=== PATIENT | female | born 1965 | race Caucasian/White ===

== ENCOUNTER 2022-06-15 06:16 | Inpatient (IN) ==
--- NOTE | 2022-05-14 11:47 | PAT Medication Instructions ---
Medication Instructions Date of Service May 14, 2022 Home Medications Medical Marijuana 1 dose inhalation DIRECTED bupropion HCl 150 mg 24 hr tablet, extended release (Wellbutrin XL) 150 mg PO QAM calcium polycarbophil 625 mg tablet (FiberCon) 1,250 mg PO HS cholecalciferol (vitamin D3) 25 mcg (1,000 unit) capsule (Vitamin D3) 25 mcg PO PM hyoscyamine sulfate 0.125 mg tablet 0.125 mg PO BID PRN melatonin 2.5 mg chewable tablet 2.5 mg PO HS DO NOT take the morning of surgery Medical Marijuana 1 dose inhalation DIRECTED hyoscyamine sulfate 0.125 mg tablet 0.125 mg PO BID PRN Take morning of surgery With a small sip of water, OTHERWISE NOTHING TO EAT OR DRINK AFTER MIDNIGHT: bupropion HCl 150 mg 24 hr tablet, extended release (Wellbutrin XL) 150 mg PO QAM Take evening before surgery Medical Marijuana 1 dose inhalation DIRECTED calcium polycarbophil 625 mg tablet (FiberCon) 1,250 mg PO HS cholecalciferol (vitamin D3) 25 mcg (1,000 unit) capsule (Vitamin D3) 25 mcg PO PM hyoscyamine sulfate 0.125 mg tablet 0.125 mg PO BID PRN (if needed) melatonin 2.5 mg chewable tablet 2.5 mg PO HS Other Notes If you have any questions please call us at [phone] or [phone] or [phone] or [phone]
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
[~2022-06-15 06:16] MED LIST: CeleBREX 200 MG CAP PO SCH; GABAPENTIN 600 MG DOSE PO SCH; LR 15ML/HR IV SCH; ceFAZolin 2000MG 2,000 MG/15 ML SYR IV SCH; dexAMETHasone 4 MG TAB PO SCH
[2022-06-15] MEDS ORDERED: MIDAZOLAM HCL 1 MG/ML 2ML VIAL ONE (06:44)
[2022-06-15] MEDS ORDERED: fentaNYL citrate 100 MCG/2 ML VIAL ONE ×2 (06:44→09:21)
[2022-06-15] MEDS ORDERED: LIDOCAINE 2% MPF LOCAL 5 ML VIAL INFIL ONE (06:53)
[2022-06-15] MEDS ORDERED: ROCURONIUM BROMIDE 10 MG/ML 5 ML VIAL IV ONE ×3 (06:53→08:13)
[2022-06-15] MEDS ORDERED: PROPOFOL IV EMULSION 10 MG/ML 20 ML VIAL IV ONE (06:53)
[2022-06-15] MEDS ORDERED: ONDANSETRON INJ 2 MG/ML 2 ML VIAL ONE (06:53)
[2022-06-15] MEDS ORDERED: DEXAMETHASONE SOD INJ 4 MG/ML VIAL ONE (06:53)
[2022-06-15] MEDS ORDERED: fentaNYL citrate 100 MCG/2 ML VIAL IV PRN (07:06)
[2022-06-15] MEDS ORDERED: HYDROmorphone INJ 2 MG/ML SYR/VIAL IV PRN (07:06)
[2022-06-15] MEDS ORDERED: ePHEDrine sulfate 50 MG/ML AMP IV PRN (07:06)
[2022-06-15] MEDS ORDERED: ONDANSETRON INJ 2 MG/ML 2 ML VIAL IV PRN ×2 (07:06→10:29)
[2022-06-15] MEDS ORDERED: ATROPINE SULFATE 0.1 MG/ML 10ML SYR IV PRN (07:06)
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
--- NOTE | 2022-06-15 07:30 | History & Physical Bridge Note ---
Date of Service June 15, 2022 History & Physical Bridge Note I have examined the patient, reviewed the History & Physical and in the interval since the performance of the History & Physical I have noted the following changes of clinical significance: no changes noted
[2022-06-15] MEDS ORDERED: BUPIVACAINE/EPINEPHRINE 0.25% 1:200,000 30 ML VIAL ONE (07:34)
[2022-06-15] MEDS ORDERED: ceFAZolin 330 MG/ML 1 GM VIAL ONE (07:34)
[2022-06-15] MEDS ORDERED: NEOSTIGMINE METHYLSULFATE 1 MG/ML 10ML VIAL ONE (08:30)
[2022-06-15] MEDS ORDERED: GLYCOPYRROLATE 0.2 MG/ML VIAL ONE (08:30)
[2022-06-15] MEDS ORDERED: FLOSEAL HEMOSTATIC MATRIX 10ML TOP ONE (08:59)
--- NOTE | 2022-06-15 09:11 | Operative Report ---
Post Operative Report Pre & Post Diagnosis Operation Date: 06/15/22 07:45 Pre-Op Diagnosis: Lumbar spinal stenosis with radiculopathy Post-Op Diagnosis: Same I identified the patient and participated in the time-out.: Yes Procedure Operation Date: 06/15/22 07:45 Actual Procedures #1 removal of posterior instrumentation L4-L5 L5-S1. #2 exploration of fusion L4-L5 L5-S1. #3 lumbar decompression with bilateral medial facetectomies and foraminotomies L2-L3 L3-L4. #4 posterior spinal fusion L3-L4. #5 patient posterior instrumentation L3-L5. #6 interbody fusion L3-L4. #7 placement of Spira 11 x 26 mm cage at L3-L4. #8 placement locally harvested morselized autograft in the posterior gutters. #9 placement I factor model V toss interbody space and posterior lateral gutters. Surgeon Rusty De La Fuente, Interstate Planner Kanchan Dumont Estimated Blood Loss 20 Findings Consistent with Post-Op Diagnosis Specimens None Indications This is a 56-year-old female presents with above-mentioned diagnosis after failed course of nonoperative care she is here for surgical invention. Description of Procedure Patient was met with identified informed consent obtained. Patient was then taken to the operative suite underwent patient placed in a prone position the Jun table top of the Jeremy frame. All bony prominences well-padded eyes inspected to ensure no external pressure placed upon them. This point the lumbar spine was prepped and draped in normal sterile fashion. Sharp dissection with the assistance of Bovie cautery was performed down to and exposing the lamina and transverse processes of L3 and instrumentation at L4-L5 and S1 levels bilaterally. Then proceeded to remove the hardware bilaterally explore the fusion mass noting it to be mature and intact. I then performed a complete laminectomy L3 partial anatomy of L2 including bilateral medial facetectomies and foraminotomies addressing all spinal stenosis. Pedicle screws were then placed in L3-L4 and L5 bilaterally with assistance of fluoroscopy the properly sized beny placed. By way of transforaminal approach and left complete discectomy of L3-L4 was performed endplates curetted to subcortical bleeding bone and a 11 x 26 mm spiral cage filled I factor tapped in position. The rods then locked into final position bilaterally. The transverse processes of L3 and L4 burred to subcortical bleeding bone. I factor model detox and locally harvested morselized autograft was placed in the posterior gutters. 15 round JAZMÍN drain inserted. The incision was then closed with 1 Vicryl the fascia 2-0 Vicryl subcutaneously and 4 Monocryl for final skin closure. Steri-Strips dressings placed. Patient waken taken to PACU in stable condition. Please note spinal cord monitoring was utilized at the procedure no changes noted. Lastly Kanchan Dumont was present at the entire surgeon while the patient positioning complex portion of the surgery and final skin closure. I attest to the content of the Intraoperative Record and any orders documented therein. Any exceptions are noted below.
--- NOTE | 2022-06-15 09:43 | Fluoroscopy Report ---
FL lumbar spine 2-3V CLINICAL HISTORY: L3-L4 DECOMPRESSION COMPARISON STUDY: 09/05/2018 FLUOROSCOPY TIME: 13.2 seconds FLUOROSCOPY IMAGES: 2 EXPOSURE DOSE: 8.13 mGy FINDINGS: Posterior interbody beny and screw fusion is noted at what appears to be the L3-L5 levels wi th discectomy. Status post removal of the S1 pedicle screws. Note that the images were submitted foll owing completion of the surgery. The hardware appears intact. No acute fracture or subluxation identi fied. Leads are noted posterior to the spine. No unexpected opaque foreign body identified. IMPRESSION: Fluoroscopic assistance as above. ACT 112: Negative or not required by law. Electronically signed by: Antonio Barba M.D. 06/15/2022 9:41 AM
--- NOTE | 2022-06-15 10:14 | Anesthesiology Progress Note ---
Date of Service June 15, 2022 Anesthesia Post Procedure Vital Signs Vital Signs: Temp Pulse Pulse Resp BP Pulse Ox O2 Del Method 06/15/22 10:10 67 15 154/97 H 98 Room Air 06/15/22 10:05 36.7 C 65 20 165/96 H 96 Room Air 06/15/22 09:55 67 20 143/86 H 100 Room Air 06/15/22 09:45 72 17 149/95 H 99 Room Air 06/15/22 09:35 65 15 110/77 100 Oxymask 06/15/22 09:27 36.4 C L 67 16 171/99 H 100 Oxymask 06/15/22 06:48 36.5 C 70 20 144/92 H 98 Room Air O2 Flow Rate 06/15/22 10:10 06/15/22 10:05 06/15/22 09:55 06/15/22 09:45 06/15/22 09:35 4 06/15/22 09:27 8 06/15/22 06:48 Pain Intensity Bilateral Lower Back: Pain Intensity: 3 Transfer of Care Handoff Completed per policy Notes Mental Status: alert / awake / arousable and participated in evaluation Patient Amnestic to Procedure: Yes Nausea / Vomiting: adequately controlled Pain: adequately controlled Airway Patency, RR, SpO2: stable & adequate BP & HR: stable & adequate Hydration State: stable & adequate Anesthetic Complications: no major complications apparent and Pt Satisfied with anesthetic care
[2022-06-15] MEDS ORDERED: ACETAMINOPHEN 1,000 MG/100 ML VIAL IV PRN (10:29)
[2022-06-15] MEDS ORDERED: SOD PHOSPHATE/SOD BIPHOSPHATE ENEMA 132 ML BTL PR PRN (10:29)
[2022-06-15] MEDS ORDERED: METOCLOPRAMIDE HCL INJ 5 MG/ML 2 ML VIAL IV PRN (10:29)
[2022-06-15] MEDS ORDERED: DO NOT ADMINISTER PNEUMOCOCCAL VACCINE PRN (10:29)
[2022-06-15] MEDS ORDERED: HYDROmorphone INJ 1 MG/ML SYRINGE IV PRN (10:29)
[2022-06-15] MEDS ORDERED: hydrOXYzine HCl 25 MG TAB PO PRN (10:29)
[2022-06-15] MEDS ORDERED: MAGNESIUM HYDROXIDE SUSP 30 ML UDC PO PRN (10:29)
[2022-06-15] MEDS ORDERED: HYDROCODONE/ACETAMOPHEN 5/325MG TAB PO PRN (10:29)
[2022-06-15] MEDS ORDERED: FAMOTIDINE 20 MG TAB PO PRN (10:29)
[2022-06-15] MEDS ORDERED: LORazepam 2 MG/1 ML VIAL IV PRN (10:29)
[2022-06-15] MEDS ORDERED: DO NOT ADMINISTER FLU VACCINE PRN (10:29)
[2022-06-15] MEDS ORDERED: ONDANSETRON 4 MG OD TAB PO PRN (10:29)
[2022-06-15] MEDS ORDERED: PROMETHAZINE HCL 12.5 MG in SODIUM CHLORIDE 0.9% 50 ML IV PRN (10:29)
[2022-06-15] MEDS ORDERED: bisacodyL 10 MG SUPP PR PRN (10:29)
[2022-06-15] MEDS ORDERED: diphenhydrAMINE Capsule 25 MG CAP PO PRN (10:29)
[2022-06-15] MEDS ORDERED: LORazepam 0.5 MG TAB PO PRN (10:29)
[2022-06-15] MEDS ORDERED: NALOXONE HCL 0.4 MG/1 ML VIAL/CARP IV PRN (10:29)
[2022-06-15] MEDS ORDERED: ALUMINUM/MAGNESIUM SUSP 30 ML UDC PO PRN (10:29)
[2022-06-15] MEDS ORDERED: ACETAMINOPHEN 500 MG TAB PO PRN (10:29)
[2022-06-15] MEDS: HYDROmorphone INJ 0.5 MG/0.5 ML SYR IV PRN ×2 (10:57→17:34)
[2022-06-15] MEDS: LACTATED RINGER'S 1,000 ML IV SCH ×2 (10:57→21:00)
[2022-06-15] MEDS: ceFAZolin 1000MG 1,000 MG/7.5 ML SYR IV SCH ×2 (16:46→23:10)
[2022-06-15] MEDS ORDERED: CHOLECALCIFEROL 1,000 UNITS 25 MCG TAB PO SCH (21:00)
[2022-06-15] MEDS: buPROPion SR 150 MG TABCR PO SCH (21:00)
[2022-06-15] MEDS: CALCIUM POLYCARBOPHIL 625MG TAB PO SCH (21:01)
[2022-06-15] MEDS: DOCUSATE SODIUM/SENNA 50/8.6MG TAB PO SCH (21:01)
[2022-06-15] MEDS: traMADol HCL 50 MG TABLET PO PRN (22:37)
[2022-06-15] MEDS: MELATONIN 3 MG TAB PO SCH (22:37)
[2022-06-16] MEDS: HYDROmorphone INJ 0.5 MG/0.5 ML SYR IV PRN ×2 (01:16→21:31)
[2022-06-16] MEDS: POLYETHYLENE (MIRALAX) 17 GM PACK PO SCH ×4 (05:17→23:49)
[2022-06-16 06:31] LABS: Basophils # (auto) 0.02 K/uL (0-0.2); Basophils % (auto) 0.1 %; Hematocrit (blood only) 32.9 % (37.0-47.0); Hemoglobin 11.5 g/dl (12.0-16.0); Immature Granulocytes # (auto) 0.09 K/uL (0.01-0.20); Immature Granulocytes % (auto) 0.6 %; Lymphocytes # (auto) 1.95 K/uL (1.2-3.4); Lymphocytes % (auto) 12.6 %; Mean Corpuscular Hemoglobin 32.5 pg (25.0-34.0); Mean Corpuscular Volume 92.9 fL (80.0-100.0); Mean Platelet Volume 11.2 fL (9.4-12.4); Monocytes # (auto) 1.22 K/uL (0.11-0.59); Monocytes % (auto) 7.9 %; Neutrophils # (auto) 12.25 K/uL (1.40-6.50); Neutrophils % (auto) 78.8 %; Platelet Count 242 K/uL (130-400); RDW Coefficient of Variation 13.1 % (11.5-14.5); RDW Standard Deviation 45.1 fL (36.4-46.3); Red Blood Count 3.54 M/uL (4.20-5.40); White Blood Count 15.53 K/ul (4.8-10.8)
[2022-06-16 06:38] LABS: BUN Creatinine Ratio 21.1 (10-20); Calcium 9.2 mg/dl (8.5-10.1); Creatinine Clr Calc Pharmacy 84.2 ml/min; Est GFR (Non-African American) 104.4 ml/min; Potassium 3.8 mmol/L (3.5-5.1)
[2022-06-16] MEDS: traMADol HCL 50 MG TABLET PO PRN ×2 (08:13→15:05)
[2022-06-16] MEDS: CHOLECALCIFEROL 5,000 UNITS 125 MCG TAB PO SCH (08:14)
[2022-06-16] MEDS: buPROPion SR 150 MG TABCR PO SCH ×2 (08:15→19:42)
[2022-06-16] MEDS: dexAMETHasone 6 MG in SYRINGE 0 ML IV SCH (08:15)
[2022-06-16] MEDS ORDERED: buPROPion XL 150 MG TABCR PO SCH (09:00)
--- NOTE | 2022-06-16 11:01 | Orthopedic Progress Note ---
Date of Service June 16, 2022 Assessment & Plan (1) Spinal stenosis, lumbar region with neurogenic claudication: Plan: Bridget is postoperative day 1 status post hard removal L4-S1, decompression fusion L3-4. She is doing great. We will continue with ambulation. Maintain JAZMÍN drain. DVT prophylaxis is in the form of teds and SCDs. Anticipate discharge home tomorrow. Admission and Anticipated Discharge Date Admission Date: June 15, 2022 Subjective Bridget is postoperative day 1 status post hard removal L4-S1, TLIF L3-4. She is doing great. No leg pain. Back pain is controlled. JAZMÍN drain output last shift was 40 cc. H&H are 11.5 and 32.9 respectively. No new complaints. She has not used her spinal cord stim today Review of Systems Review of Systems: All systems reviewed & are unremarkable except as noted in HPI & below Physical Exam Physical Exam: She is lying in bed in no acute distress Alert and oriented x3 Lumbar dressing is clean dry and intact with functioning JAZMÍN drain Strength intact bilateral lower extremity Calf soft and nontender bilaterally Results & Data ([facility]) Vital Signs (Past 12 Hours) Vital Signs Temp Pulse Resp BP Pulse Ox O2 Del Method 06/16/22 07:31 36.6 C 92 H 16 130/72 98 Room Air 06/16/22 03:16 36.6 C 71 18 110/69 96 Room Air 06/15/22 23:14 36.5 C 72 18 125/77 94 Room Air
[2022-06-16] MEDS: DOCUSATE SODIUM/SENNA 50/8.6MG TAB PO SCH (19:42)
[2022-06-16] MEDS: CALCIUM POLYCARBOPHIL 625MG TAB PO SCH (19:42)
[2022-06-16] MEDS: MELATONIN 3 MG TAB PO SCH (19:42)
[2022-06-17] MEDS: POLYETHYLENE (MIRALAX) 17 GM PACK PO SCH ×2 (05:10→08:16)
[2022-06-17 07:21] VITALS: BP 137/90; PULSE 70; TEMP 97.7; O2SAT 97
[2022-06-17] MEDS: CHOLECALCIFEROL 5,000 UNITS 125 MCG TAB PO SCH (08:17)
[2022-06-17] MEDS: buPROPion SR 150 MG TABCR PO SCH (08:17)
[2022-06-17] MEDS: dexAMETHasone 6 MG in SYRINGE 0 ML IV SCH (08:17)
--- NOTE | 2022-06-17 11:45 | Discharge Summary ---
Date of Service June 17, 2022 Admission HPI Per Admitting Provider This is a 56-year-old female presents with chronic persistent back and leg pain after failing such course of nonoperative care she is here for surgical invention. Principal Diagnosis Lumbar spinal stenosis with neurogenic claudication Discharge Data Allergies Allergy/AdvReac Type Severity Reaction Status Date / Time oxycodone Allergy Severe SEVER Verified 06/15/22 06:39 ITCHING acetaminophen [From Percocet] Allergy Intermediate itching Verified 06/15/22 06:39 Procedures Performed Operation Date: 06/15/22 07:45 Actual Procedures p L3-L4 Decompression and Fusion, Spinal Cord Monitoring(Not Applicable) - Rusty De La Fuente DO s L4-S1 Hardware Removal,(Not Applicable) - Rusty De La Fuente DO Ordered Studies 06/15/22 07:45 FL lumbar spine 2-3V Routine Hospital Course (1) Spinal stenosis, lumbar region with neurogenic claudication: Patient went lumbar decompression and fusion [facility] for postoperative pain postop day #1 she is up and ambulate progress postop day #2. JAZMÍN drain decreasing probably. Pain well controlled. Subsequent discharge home. Discharge orders instructions on the chart for further review. Total Time Total Time Spent Total Time Spent (In Minutes): 20 minutes Discharge Plan Discharge Items Patient Disposition: Home - Self-Care Reason For Visit: POST OP Discharge Diagnosis: Lumbar spinal stenosis with radiculopathy Activity: As commented below Non-emergency contact: Primary Care Provider Call non-emergency contact if: you have any medication questions Follow-up/Referrals: Rachel Rayo M.D. [Primary Care Provider] - Diet: Regular Addtl Attending Provider Instructions: ACTIVITY RECOMMENDATIONS: SELF CARE INSTRUCTIONS AFTER THORACIC/LUMBAR FUSIONS 1. You may walk to your tolerance. It is good exercise for your legs and back. Expect some back and intermittent leg aches and pains. 2. You may perform "counter-top" level activities (make a sandwich, china with a project, etc.). 3. No bending or lifting of more than 10 pounds or back twisting of any nature (roll like a log when turning in bed). 4. You may ride in a car for 20-30 minutes at a time. No driving until after your first visit with your doctor. 5. Frequent changes of position and restricting sitting to 30 minutes at a time will help limit the amount of back spasms and stiffness you may experience. 6. You may discontinue the use of ambulatory aids (cane, crutches, etc.) once your strength and confidence allow. 7. You may clinical rehabilitation aide the shower and let water strike your incision when you arrive home at least once daily. Do not take a tub bath, sit in a hot tub or go into a swimming pool until after your first recheck in the office. SPECIAL CARE INSTRUCTIONS: VERY IMPORTANT TO READ AND REVIEW A. Your surgical incision has been closed with a cosmetic suture under the skin that will dissolve in about 6 weeks. In 14 days, you can use a pair of clean scissors and cut the suture that is left outside of the skin at the ends of your incision. 1. The small skin tapes can be removed 7 days after surgery if they have not fallen off by that point. 2. You may keep the wound open to air as much as possible to promote healing after post-op day number 5 unless told otherwise by your doctor. 3. If you think the wound looks like it is becoming infected (redness or worsening drainage) and/or you are experiencing fever, chill or worsening back pain and muscle spasms, contact the office so that we may evaluate you as soon as possible. B. Complications are uncommon, but please contact us if you have any signs or symptoms of: 1. wound infection (fever higher than 102.5 degrees F, redness, separation of wound, drainage, or increasing pain from the incision) 2. blood clots in legs (pain, swelling, redness and warmth in legs) 3. urinary tract infection (fever higher than 102.5 degrees F, burning upon urination or increased frequency of urination) 4. nerve problems (inability to walk on your toes or heels, numbness, loss of bowel or bladder control) 5. any other symptoms that concern you C. Please call the office at if you have any concerns or questions about your operation or recovery. D. No smoking! Smoking drastically decreases the chance of a solid fusion. E. Do not take any anti-inflammatory medications (Indocin, Advil, Motrin, Aspirin, Naprosyn, etc.) as these may inhibit the chance of a solid fusion. Tylenol is okay to take for pain. MANAGING PAIN AFTER SPINAL SURGERY 1. Narcotic medication is intended for short-term use and will be provided for surgical pain. Surgical pain usually lasts for a period of 4-6 weeks. Narcotic medication includes Percocet, Vicodin, Darvocet, Tylenol #3 or Lortab. 2. Longer-term pain is more appropriately treated with non-narcotic medication such as Tylenol ES. 3. Muscle spasm is not appropriately treated with narcotics. Muscle relaxers such as Soma, Flexeril or Skelaxin can be used along with Tylenol ES. 4. Remember that we all live with some "aches and pains". This is not unusual or uncommon after an injury or as we get older. a. Back pain is expected and may include muscle spasms for 4 to 6 weeks after surgery. The pain should gradually improve. If the pain worsens for no apparent reason, please contact the office. b. Intermittent leg pain may also be experienced and should not be concerned about unless it worsens for no apparent reason. If so, please contact the office. 5. We will provide appropriate medication within the normal guidelines of their prescribed use. We will also be very cautious and aware of potential abuse and extended duration of patients' medication needs. a. Pain medications are for your comfort and to assist with sleep and rest so that the tissue can heal. They are not provided in order to return to normal activity and should not be used through the day. To do so or worsening pain at night can result from ongoing tissue damage and development of tolerance to the prescribed medicine. 6. Please allow 2-3 days to process refills. Prescriptions will not be mailed but must be picked up at the office. FOLLOW UP VISIT: Keep your scheduled follow-up appointment. Any questions, please call the office at . Pending Studies at Discharge: No Stand-Alone Forms: [employer], Smoking Cessation Medications and DC Order Prescriptions: New hydrocodone-acetaminophen 5-325 mg tablet 1 tab PO Q6H PRN (Reason: pain) Qty: 30 0RF Rx Instructions: 1 tab PO PRN; tramadol 50 mg tablet 50 mg PO Q6H PRN (Reason: pain, moderate) Qty: 30 0RF Continued bupropion HCl [Wellbutrin SR] 150 mg Tablet Sustained-Release 12 Hr 150 mg PO BID estradiol 0.025 mg/24 hr Patch Weekly 0.025 mg topical USEASDIRECTD Rx Instructions: WEEKLY CHANGE- EVERY WEDNESDAY cholecalciferol (vitamin D3) [Vitamin D3] 5,000 unit Tablet 5,000 unit PO DAILY hydrocodone-acetaminophen [[place]forth] 5-325 mg Tablet 1 tab PO Q4H PRN (Reason: Pain, Severe) Qty: 30 0RF tramadol 50 mg Tablet 50 - 100 mg PO Q4H PRN (Reason: Pain, Moderate) Qty: 30 0RF hyoscyamine sulfate 0.125 mg Tablet 0.125 mg PO BID PRN (Reason: Other) calcium polycarbophil [FiberCon] 625 mg Tablet 1,250 mg PO HS cholecalciferol (vitamin D3) [Vitamin D3] 25 mcg (1,000 unit) Capsule 25 mcg PO PM bupropion HCl [Wellbutrin XL] 150 mg Tablet Extended Release 24 Hr 150 mg PO QAM melatonin 2.5 mg Tablet,Chewable 2.5 mg PO HS Medical Marijuana 1 dose inhalation DIRECTED Discharge Orders: Discharge Order (Routine); Ordered 06/17/22 Ordered By: Rusty De La Fuente Admission Data Admit Date/Time: 06/15/22 09:12 Attending Provider: Rusty De La Fuente Admit Provider: Rusty De L aFuente Primary Care Provider: Rachel Rayo
== END 2022-06-17 14:48 | disposition home or self-care (01) | DRG 455 ==
LOC: ASU 06:16 → MERGE 07:45 → 3E 09:12